=== PATIENT | female | born 1960 | race Caucasian/White ===

== ENCOUNTER 2023-07-16 11:32 | Emergency (ER) | payer OTHER ==
[~2023-07-16] VITALS: Ht 157.5 cm; Wt 89.4 kg
[2023-07-16 11:45] VITALS: O2SAT 97
[2023-07-16] MEDS ORDERED: PHEN37.511 PO (11:54)
[2023-07-16] MEDS ORDERED: LISI20TA30 PO (11:54)
[2023-07-16] MEDS ORDERED: METO100T14 PO (11:54)
[2023-07-16] MEDS ORDERED: ATOR20TA PO (11:54)
[2023-07-16] MEDS ORDERED: METO50TA16 PO (11:54)
[2023-07-16] MEDS ORDERED: FURO-152 PO (11:54)
[2023-07-16] MEDS ORDERED: METF-494 PO (11:54)
[2023-07-16] MEDS ORDERED: FUROSEMIDE 40 MG/4 ML VIAL IV ONE (12:15)
[2023-07-16] MEDS ORDERED: FUROSEMIDE 40 MG/4 ML VIAL ONE (12:17)
[2023-07-16 12:49] LABS: BASOPHILS # (AUTO) 0.1 K/UL (0.0-0.2); BASOPHILS % (AUTO) 1.1 % (0.0-2.0); EOSINOPHILS # (AUTO) 0.1 K/uL (0.0-0.7); EOSINOPHILS % (AUTO) 2.7 % (0.0-7.0); HEMATOCRIT 36.7 % (31.2-41.9); HEMOGLOBIN 12.3 g/dL (10.9-14.3); LYMPHOCYTES # (AUTO) 1.5 K/uL (0.8-4.8); LYMPHOCYTES % (AUTO) 27.8 % (20.5-51.5); MEAN CORPUSCULAR HEMOGLOBIN 30.6 uug (24.7-32.8); MEAN CORPUSCULAR HGB CONC 34 g/dL (32.3-35.6); MEAN CORPUSCULAR VOLUME 91.5 fL (75.5-95.3); MONOCYTES # (AUTO) 0.6 K/uL (0.1-1.30); MONOCYTES % (AUTO) 10.1 % (0.0-11.0); NEUTROPHILS # (AUTO) 3.2 K/uL (1.8-8.9); NEUTROPHILS % (AUTO) 58.3 % (38.5-71.5); PLATELET COUNT (AUTO) 195 K/uL (179-408); RED BLOOD CELL COUNT(AUTO) 4.01 MIL/uL (3.63-4.92); RED CELL DISTRIBUTION WIDTH 13.2 % (12.3-17.7); WHITE BLOOD COUNT (AUTO) 5.5 K/uL (3.8-11.8)
[2023-07-16 13:06] LABS: DIFFERENTIAL COMMENT 1
[2023-07-16 13:11] LABS: CALCIUM 9.3 mg/dL (8.5-10.1); CARBON DIOXIDE 26 mmol/L (21-32); CHLORIDE 104 mmol/L (98-107); CREATININE 0.7 mg/dL (0.6-1.3); GLUCOSE 101 mg/dL (74-106); POTASSIUM 3.9 mmol/L (3.5-5.1); SODIUM SERUM 138 mmol/L (136-145); UREA NITROGEN, BLOOD 13 mg/dL (7-18)
[2023-07-16 13:25] LABS: ALANINE AMINOTRANSFERASE 19 U/L (14-59); ALBUMIN 3.6 g/dL (3.4-5.0); ALKALINE PHOSPHATASE 47 U/L (50-136); ASPARTATE AMINOTRANSFERASE 8 U/L (15-37); BILIRUBIN,DIRECT 0.1 mg/dL (0.0-0.2); BILIRUBIN,TOTAL 0.6 mg/dL (0.2-1.0); NT-PRO BNP 119 pg/mL (0-125); TOTAL PROTEIN, SERUM 7.1 g/dL (6.4-8.2)
== END 2023-07-16 14:31 | disposition home or self-care (01) ==
LOC: ER 11:32
DX: R60.0 Localized edema (principal); I50.9 Heart failure, unspecified; I11.0 Hypertensive heart disease with heart failure; E78.5 Hyperlipidemia, unspecified; E11.9 Type 2 diabetes mellitus without complications; Z86.73 Personal history of transient ischemic attack (TIA), and cerebral infarction without residual deficits; Z79.84 Long term (current) use of oral hypoglycemic drugs; Z79.899 Other long term (current) drug therapy
CPT/HCPCS: 99285; 93970; 96374; 71045; 80076; 80048; 83880; 85025; 85379; 84484; 36415; 93005; J1940; A4606; A4663